=== PATIENT | male | born 1995 | race Caucasian/White ===

== ENCOUNTER 2017-05-09 20:39 | Emergency (ER) | payer OTHER ==
[~2017-05-09] VITALS: Ht 177.8 cm; Wt 86.2 kg
--- NOTE | 2017-05-10 02:43 | PHYS DOC ---
Past History Past Medical History: Other Past Surgical History: Tonsillectomy Alcohol Use: None Drug Use: None Adult General Chief Complaint Chief Complaint: HAND PROBLEM HPI HPI Patient is a 22 yo male presenting to ED for evaluation of R hand pain s/p hitting shepherd and floor multiple times. He has multiple abrasions and swelling to his knuckles and fingers. tdap utd. No weakness, numbness, tingling. No other physical complaints. 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 Patient denies SI or HI, he says he just lost his cool after his girlfriend broke up with him. Friend is saying that he has made suicidal comments and is requesting psych eval. I informed that the psych eval process will take a significant amount of time. Review of Systems Review of Systems Constitutional: Denies fever or chills [] Musculoskeletal: + joint pain [] Integument: + abrasions Neurologic: Denies focal weakness or sensory changes [] All other systems were reviewed and found to be within normal limits, except as documented in this note. Allergies Allergies Allergies Coded Allergies Type Severity Reaction Last Updated Verified No Known Drug Allergies 05/09/17 No Physical Exam Physical Exam Constitutional: Well developed, well nourished, no acute distress, non-toxic appearance. [] Cardiovascular:Heart rate regular rhythm, no murmur [] Lungs & Thorax: Bilateral breath sounds clear to auscultation [] Skin: multiple abrasions noted. Extremities: R hand with multiple bruises and swelling. No open wounds or deformities. Neurologic: Alert and oriented X 3, normal motor function, normal sensory function, no focal deficits noted. [] Current Patient Data Vital Signs Vital Signs Date Time Temp Pulse Resp B/P (MAP) Pulse Ox O2 Delivery O2 Flow Rate FiO2 05/09/17 21:03 98.8 80 20 98 Room Air EKG EKG [] Radiology/Procedures Radiology/Procedures Right hand shows no obvious fractures dislocations soft tissue foreign bodies Course & Med Decision Making Course & Med Decision Making Patient is medically cleared but will get psychiatric evaluation. Psych glass cut off supervisor felt patient is unstable and recommends inpatient evaluation. This is based off what she said was impulse control issues. She also mentioned that he threatened to kill himself and his ex's new S.O. Faxing information to facilities to get admission. Dragon Disclaimer Dragon Disclaimer This electronic medical record was generated, in whole or in part, using a voice recognition dictation system. Departure Departure: Impression: Primary Impression: Hand contusion Additional Impressions: Hand abrasion Suicidal ideation Disposition: 05 XFER OTHER Condition: STABLE Referrals: NON,STAFF (PCP) Problem Qualifiers Primary Impression: Hand contusion Encounter type: initial encounter Laterality: right Qualified Codes: S60.221A - Contusion of right hand, initial encounter TERE GARCIA DO May 10, 2017 02:43
[2017-05-10 03:57] LABS: BASO # 0.1 x10^3/uL (0.0-0.2); BASO % 1 % (0-3); EOS # 0.3 x10^3/uL (0.0-0.7); EOS % 3 % (0-3); HEMATOCRIT 43.4 % (39.0-53.0); HEMOGLOBIN 15.3 g/dL (13.0-17.5); LYMPH # 2.3 x10^3/uL (1.0-4.8); LYMPH % 25 % (24-48); MEAN CORPUSCULAR HEMOGLOBIN 33 pg (25-35); MEAN CORPUSCULAR HGB CONC 35 g/dL (31-37); MEAN CORPUSCULAR VOLUME 94 fL (79-100); MONO # 0.7 x10^3/uL (0.0-1.1); MONO % 8 % (0-9); NEUT # 5.8 x10^3uL (1.8-7.7); NEUT % 63 % (31-73); PLATELET COUNT 247 x10^3/uL (140-400); RED BLOOD COUNT 4.63 x10^6/uL (4.30-5.70); RED CELL DISTRIBUTION WIDTH 12.9 % (11.5-14.5); WHITE BLOOD COUNT 9.1 x10^3/uL (4.0-11.0)
[2017-05-10 04:06] LABS: ACETAMIN < 2 mcg/mL (10-30); ETHANOL < 10 mg/dL (0-10)
[2017-05-10 04:07] LABS: SALIC < 0.2 mg/dL (2.8-20.0)
[2017-05-10 04:17] LABS: ALBUMIN 4.4 g/dL (3.4-5.0); ALBUMIN/GLOBULIN RATIO 1.5 (1.0-1.7); CALCIUM 9.1 mg/dL (8.5-10.1); CREATININE 0.9 mg/dL (0.7-1.3); GFR 106.5; POTASSIUM 3.3 mmol/L (3.5-5.1); TOTAL BILIRUBIN 0.9 mg/dL (0.2-1.0); TOTAL PROTEIN 7.4 g/dL (6.4-8.2)
--- NOTE | 2017-05-10 08:32 | RAD ---
Right hand, 05/09/2017: History: Injury No fracture or dislocation is identified. There is mild soft tissue swelling over the dorsum of the hand in the distal metacarpal region. IMPRESSION: No acute bony abnormality is detected.
[2017-05-10 12:25] VITALS: BP 124/65
== END 2017-05-10 13:30 | disposition short-term general hospital (02) ==
LOC: ER 20:39
DX: S60.221A Contusion of right hand, initial encounter (principal); R45.851 Suicidal ideations; W22.01XA Walked into wall, initial encounter; Y93.89 Activity, other specified; Y99.8 Other external cause status; Y92.89 Other specified places as the place of occurrence of the external cause
CPT/HCPCS: 36415; 73130; 80053; 84443; 85025; 99285; G0480

== ENCOUNTER 2017-06-29 14:46 | Emergency (ER) | payer OTHER ==
[~2017-06-29] VITALS: Ht 177.8 cm; Wt 81.4 kg
--- NOTE | 2017-06-29 15:12 | PHYS DOC ---
Past History Past Medical History: Other Past Surgical History: Tonsillectomy Alcohol Use: None Drug Use: None Adult General Chief Complaint Chief Complaint: ANKLE PROBLEM HPI HPI 22-year-old male presents with right foot and ankle pain. The patient went on a 5 mile run on Friday and soon afterwards he had right foot pain. He has tried to take it easy throughout the weekend, but the pain seems to be increasing. It hurts when his heel hits the ground. Pain is in the lateral aspect of his foot and radiates up the lateral side of his ankle. He denies any swelling. He denies any trauma or rolling his ankle. He denies fever or chills. He has no other complaints. Review of Systems Review of Systems Constitutional: Denies fever or chills [] Eyes: Denies change in visual acuity, redness, or eye pain [] HENT: Denies nasal congestion or sore throat [] Respiratory: Denies cough or shortness of breath [] Cardiovascular: No additional information not addressed in HPI [] GI: Denies abdominal pain, nausea, vomiting, bloody stools or diarrhea [] : Denies dysuria or hematuria [] Musculoskeletal: Right foot and ankle pain[] Integument: Denies rash or skin lesions [] Neurologic: Denies headache, focal weakness or sensory changes [] Endocrine: Denies polyuria or polydipsia [] All other systems were reviewed and found to be within normal limits, except as documented in this note. Allergies Allergies Allergies Coded Allergies Type Severity Reaction Last Updated Verified No Known Drug Allergies 05/09/17 No Physical Exam Physical Exam Constitutional: Well developed, well nourished, no acute distress, non-toxic appearance. [] HENT: Normocephalic, atraumatic, bilateral external ears normal, oropharynx moist, no oral exudates, nose normal. [] Eyes: PERRLA, EOMI, conjunctiva normal, no discharge. [] Neck: Normal range of motion, no tenderness, supple, no stridor. [] Cardiovascular:Heart rate regular rhythm, no murmur [] Lungs & Thorax: Bilateral breath sounds clear to auscultation [] Abdomen: Bowel sounds normal, soft, no tenderness, no masses, no pulsatile masses. [] Skin: Warm, dry, no erythema, no rash. [] Back: No tenderness, no CVA tenderness. [] Extremities: Right ankle: No ligamentous laxity. No swelling. No bruising. Tenderness with palpation of the plantar fascia. [] Neurologic: Alert and oriented X 3, normal motor function, normal sensory function, no focal deficits noted. [] Psychologic: Affect normal, judgement normal, mood normal. [] Current Patient Data Vital Signs Vital Signs Date Time Temp Pulse Resp B/P (MAP) Pulse Ox O2 Delivery O2 Flow Rate FiO2 06/29/17 14:50 98.6 80 18 96 Room Air EKG EKG [] Radiology/Procedures Radiology/Procedures Right foot 3 views, right ankle 3 views. HISTORY: Right foot pain x2 days, running 5K Right ankle 3 views were taken of the right ankle. There is not evidence of an acute fracture or osseous abnormality. Right foot 3 views were taken of the right foot. There is not evidence of an acute fracture or osseous abnormality. MRI is more sensitive for early stress injury. IMPRESSION: 1. Negative right foot. 2. Negative right ankle. Electronically signed by: Andrew Ortega MD (06/29/2017 3:32 PM) [facility][] Course & Med Decision Making Course & Med Decision Making Pertinent Labs and Imaging studies reviewed. (See chart for details) The patient's x-rays are negative for fracture or dislocation. Patient's history and physical exam, I believe this is most likely plantar fasciitis. I' ll recommend the patient take anti-inflammatories for at least 7 days consistently as well as resting from PT for one week. 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 If his pain is not resolved, her mails supervisor or MRI could be considered to conclusively rule out stress fracture. [] Dragon Disclaimer Dragon Disclaimer This electronic medical record was generated, in whole or in part, using a voice recognition dictation system. Departure Departure: Referrals: YANET CANTOR MD (PCP) PAMELA TREJO DO June 29, 2017 15:12
--- NOTE | 2017-06-29 15:35 | RAD ---
Right foot 3 views, right ankle 3 views. HISTORY: Right foot pain x2 days, running 5K Right ankle 3 views were taken of the right ankle. There is not evidence of an acute fracture or osseous abnormality. Right foot 3 views were taken of the right foot. There is not evidence of an acute fracture or osseous abnormality. MRI is more sensitive for early stress injury. IMPRESSION: 1. Negative right foot. 2. Negative right ankle. Electronically signed by: Andrew Ortega MD (06/29/2017 3:32 PM) [facility]
[2017-06-29 15:49] VITALS: BP 122/66
== END 2017-06-29 15:49 | disposition home or self-care (01) ==
LOC: ER 14:46
DX: M25.571 Pain in right ankle and joints of right foot (principal); M79.671 Pain in right foot; X58.XXXA Exposure to other specified factors, initial encounter; Y93.02 Activity, running; Y99.8 Other external cause status; Y92.89 Other specified places as the place of occurrence of the external cause
CPT/HCPCS: 73610; 73630; 99284